=== PATIENT | male | born 1960 | race Hispanic/Latino ===

== ENCOUNTER 2021-02-28 08:34 | Emergency (ER) | payer OTHER ==
[~2021-02-28] VITALS: Ht 172.7 cm; Wt 79.4 kg
[2021-02-28] MEDS ORDERED: METHYLPREDNISOLONE SOD SUCC 125 MG/2ML VIAL IV STA (09:12)
[2021-02-28] MEDS ORDERED: FAMOTIDINE 20 MG/2 ML VIAL IV STA (09:12)
[2021-02-28] MEDS ORDERED: DIPHENHYDRAMINE HCL INJ 50 MG/ML VIAL IV ONE (09:15)
[2021-02-28] MEDS ORDERED: PIPERACILLIN/TAZOBACTAM 2.25 GM in SODIUM CHLORIDE 0.9% 50ML 50 ML IV ONE (09:15)
[2021-02-28 09:37] LABS: BASOPHILS % 0.3 % (0.0-1.0); EOSINOPHILS # (AUTO) 0.3 (0.0-0.4); EOSINOPHILS % 1.7 % (0.0-6.0); LYMPHOCYTES # (AUTO) 0.5 (1.0-3.2); LYMPHOCYTES % 3.8 % (18.0-39.1); MEAN CORPUSCULAR HEMOGLOBIN 28.9 pg (28-32); MEAN CORPUSCULAR VOLUME 87.6 fL (81-99); MONOCYTES # (AUTO) 1.3 (0.2-0.8); MONOCYTES % 9.2 % (4.4-11.3); NEUTROPHILS # (AUTO) 11.4 (2.1-6.9); NEUTROPHILS % 79.3 % (38.7-80.0); PLATELET COUNT 215 x10e3/uL (140-360); RED BLOOD COUNT 2.01 x10e6/uL (4.3-5.7); RED CELL DISTRIBUTION WIDTH 15.1 % (11.7-14.4)
[2021-02-28 09:52] LABS: INR 1.17; PROTHROMBIN TIME 15.6 seconds (11.9-14.5)
[2021-02-28 09:53] LABS: PARTIAL THROMBOPLASTIN TIME 42.4 seconds (23.8-35.5)
[2021-02-28 09:59] LABS: HEMOGLOBIN 5.8 g/dL (14.0-18.0)
[2021-02-28 10:00] LABS: HEMATOCRIT 17.6 % (38.2-49.6)
[2021-02-28 10:06] LABS: CREATINE KINASE MB 5.2 ng/mL (0-5.0)
[2021-02-28 10:08] LABS: ALBUMIN 2.8 g/dL (3.5-5.0); ALBUMIN/GLOBULIN RATIO 0.8 (0.8-2.0); ANION GAP 25.2 mmol/L (8-16); CREATININE, SERUM 13.72 mg/dL (0.72-1.25); MAGNESIUM 2.1 MG/DL (1.3-2.1); POTASSIUM 5.2 mmol/L (3.5-5.1)
[2021-02-28] MEDS ORDERED: VANCOMYCIN 1GM/NS 250 ML 250 ML IV ONE (10:45)
== END 2021-02-28 13:39 | disposition short-term general hospital (02) ==
LOC: ER 09:27
DX: L03.213 Periorbital cellulitis (principal); L02.818 Cutaneous abscess of other sites; I12.0 Hypertensive chronic kidney disease with stage 5 chronic kidney disease or end stage renal disease; E11.22 Type 2 diabetes mellitus with diabetic chronic kidney disease; N18.6 End stage renal disease; Z99.2 Dependence on renal dialysis; R94.31 Abnormal electrocardiogram [ECG] [EKG]; Z20.822 Contact with and (suspected) exposure to COVID-19
CPT/HCPCS: 36415; 70480; 70486; 71045; 80053; 82550; 82553; 83605; 83735; 83880; 84484; 85025; 85610; 85730; 87040; 93005; 99284; J1200; J2543; J2930; J3370; U0002

== ENCOUNTER → 2025-07-24 | Outpatient (REF) | payer BC | LOC: US 10:27 | PROVIDERS: ATTEND Nurse Practitioner Family | DX: Z12.9 Encounter for screening for malignant neoplasm, site unspecified (principal); K74.00 Hepatic fibrosis, unspecified; K80.20 Calculus of gallbladder without cholecystitis without obstruction; N26.1 Atrophy of kidney (terminal) | CPT/HCPCS: 76700 ==